=== PATIENT | male | born 1970 | race Caucasian/White ===

== ENCOUNTER → 2016-05-19 | Outpatient (CLI) | payer BC ==
[~2016-05-19] MED LIST: ACETAMINOPHEN 325 MG TAB PO ONE; BACLOFEN 10 MG TAB PO PRN; NS IV ONE; NS IV SCH; RITUXIMAB IV ONE; RITUXIMAB IV SCH; methylPREDNISolone SOD SUCC 125 MG/2 ML VIAL IVP ONE; traMADol 50 MG TAB PO PRN
[2016-05-19 13:59] VITALS: PULSE 79
[2016-05-19 14:57] VITALS: BP 112/59; RESP 16; TEMP 98.3; O2SAT 97
== END ==
LOC: F1NOP 09:34
PROVIDERS: ATTEND Psychiatry & Neurology Neurology
PROC: 3E033GC Introduction of Other Therapeutic Substance into Peripheral Vein, Percutaneous Approach (ICD-10-PCS; principal; 2016-05-19)
DX: G35 Multiple sclerosis (principal)
CPT/HCPCS: J9310

== ENCOUNTER 2016-08-17 09:32 | Outpatient (CLI) | payer BC ==
[2016-08-17] MEDS ORDERED: ACETAMINOPHEN 325 MG TAB PO SCH (10:30)
[2016-08-17] MEDS ORDERED: NS 1,000 ML IV PRN (10:30)
[2016-08-17] MEDS ORDERED: NS 500 ML IV PRN (10:30)
[2016-08-17] MEDS ORDERED: HYDROCORTISONE 100 MG/2 ML VIAL IVP PRN (10:30)
[2016-08-17] MEDS ORDERED: MEPERIDINE 25 MG/ML SYR IVP PRN (10:30)
[2016-08-17] MEDS ORDERED: DEXAMETHASONE 10 MG/ML VIAL IVP PRN (10:30)
[2016-08-17] MEDS ORDERED: ACETAMINOPHEN 325 MG TAB PO PRN (10:30)
[2016-08-17] MEDS ORDERED: riTUXimab 500 MG in NS 450 ML IV ONE (11:00)
[2016-08-17] MEDS ORDERED: methylPREDNISolone SOD SUCC 125 MG/2 ML VIAL IVP ONE (11:15)
[2016-08-17 11:26] VITALS: RESP 20
[2016-08-17 12:19] VITALS: O2SAT 97
[2016-08-17 14:17] VITALS: BP 106/66; PULSE 83; TEMP 97.9
== END 2016-08-17 15:33 | disposition home or self-care (01) ==
LOC: F1NOP 09:32
PROVIDERS: ATTEND Psychiatry & Neurology Neurology
PROC: 3E033GC Introduction of Other Therapeutic Substance into Peripheral Vein, Percutaneous Approach (ICD-10-PCS; principal; 2016-08-17)
DX: G35 Multiple sclerosis (principal)
CPT/HCPCS: J9310

== ENCOUNTER 2016-11-08 09:25 | Outpatient (CLI) | payer OTHER, BC ==
[2016-11-08] MEDS ORDERED: DEXAMETHASONE 10 MG/ML VIAL IVP PRN (09:43)
[2016-11-08] MEDS ORDERED: HYDROCORTISONE 100 MG/2 ML VIAL IVP PRN (09:43)
[2016-11-08] MEDS ORDERED: NS 500 ML IV PRN (09:43)
[2016-11-08] MEDS ORDERED: MEPERIDINE 25 MG/ML SYR IVP PRN (09:43)
[2016-11-08] MEDS ORDERED: NS 1,000 ML IV PRN (09:43)
[2016-11-08] MEDS ORDERED: ACETAMINOPHEN 325 MG TAB PO PRN (09:43)
[2016-11-08] MEDS ORDERED: methylPREDNISolone SOD SUCC 125 MG/2 ML VIAL IVP ONE (09:45)
[2016-11-08] MEDS ORDERED: ACETAMINOPHEN 325 MG TAB PO ONE (09:45)
[2016-11-08] MEDS ORDERED: riTUXimab 500 MG in NS 450 ML IV ONE (10:15)
[2016-11-08] MEDS ORDERED: FAMOTIDINE 20 MG/NACL 50 ML IV ONE (10:15)
[2016-11-08 12:13] VITALS: BP 108/76; PULSE 72; RESP 16; TEMP 98.1; O2SAT 94
== END 2016-11-08 15:00 | disposition home or self-care (01) ==
LOC: F1NOP 09:25 → EDSTATUS 10:00 → F1NOP 15:00
PROVIDERS: ATTEND Psychiatry & Neurology Neurology
PROC: 3E033GC Introduction of Other Therapeutic Substance into Peripheral Vein, Percutaneous Approach (ICD-10-PCS; principal; 2016-11-08)
DX: G35 Multiple sclerosis (principal)
CPT/HCPCS: 96374; 96375; 96413; 96415; J9310

== ENCOUNTER 2017-02-02 10:15 | Outpatient (CLI) | payer OTHER, BC ==
[2017-02-02] MEDS ORDERED: HYDROCORTISONE 100 MG/2 ML VIAL IVP PRN (10:28)
[2017-02-02] MEDS ORDERED: MEPERIDINE 25 MG/ML SYR IVP PRN (10:28)
[2017-02-02] MEDS ORDERED: ACETAMINOPHEN 325 MG TAB PO PRN (10:28)
[2017-02-02] MEDS ORDERED: NS 1,000 ML IV PRN (10:28)
[2017-02-02] MEDS ORDERED: NS 500 ML IV PRN (10:28)
[2017-02-02] MEDS ORDERED: DEXAMETHASONE 10 MG/ML VIAL IVP PRN (10:28)
[2017-02-02] MEDS ORDERED: methylPREDNISolone SOD SUCC 125 MG/2 ML VIAL IVP ONE (10:45)
[2017-02-02] MEDS ORDERED: ACETAMINOPHEN 325 MG TAB PO ONE (10:45)
[2017-02-02 11:05] VITALS: BP 132/80; PULSE 67; RESP 16; TEMP 97.6; O2SAT 96
[2017-02-02] MEDS ORDERED: riTUXimab 500 MG in NS 450 ML IV ONE (11:15)
== END 2017-02-02 16:00 | disposition home or self-care (01) ==
LOC: F1NOP 10:15
PROVIDERS: ATTEND Psychiatry & Neurology Neurology
PROC: 3E033GC Introduction of Other Therapeutic Substance into Peripheral Vein, Percutaneous Approach (ICD-10-PCS; principal; 2017-02-02)
DX: G35 Multiple sclerosis (principal)
CPT/HCPCS: 96374; 96413; 96415; J2930; J9310

== ENCOUNTER 2017-05-04 09:12 | Outpatient (CLI) | payer OTHER, BC ==
[2017-05-04] MEDS ORDERED: HYDROCORTISONE 100 MG/2 ML VIAL IVP PRN (09:29)
[2017-05-04] MEDS ORDERED: NS 500 ML IV PRN (09:29)
[2017-05-04] MEDS ORDERED: DEXAMETHASONE 10 MG/ML VIAL IVP PRN (09:29)
[2017-05-04] MEDS ORDERED: MEPERIDINE 25 MG/ML SYR IVP PRN (09:29)
[2017-05-04] MEDS ORDERED: NS 1,000 ML IV PRN (09:29)
[2017-05-04] MEDS ORDERED: ACETAMINOPHEN 325 MG TAB PO PRN (09:29)
[2017-05-04] MEDS ORDERED: ACETAMINOPHEN 325 MG TAB PO ONE (09:29)
[2017-05-04] MEDS ORDERED: riTUXimab 500 MG in NS 450 ML IV ONE (10:00)
[2017-05-04] MEDS ORDERED: methylPREDNISolone SOD SUCC 125 MG/2 ML VIAL IVP ONE (10:45)
[2017-05-04 11:09] VITALS: RESP 16
[2017-05-04 13:00] VITALS: BP 100/65; PULSE 71; TEMP 97.9; O2SAT 97
== END 2017-05-04 16:20 | disposition home or self-care (01) ==
LOC: F1NOP 09:12
PROVIDERS: ATTEND Psychiatry & Neurology Neurology
PROC: 3E033GC Introduction of Other Therapeutic Substance into Peripheral Vein, Percutaneous Approach (ICD-10-PCS; principal; 2017-05-04)
DX: G35 Multiple sclerosis (principal)
CPT/HCPCS: J2930; J9310

== ENCOUNTER 2017-07-25 09:37 | Outpatient (CLI) | payer OTHER, BC ==
[2017-07-25] MEDS ORDERED: ACETAMINOPHEN 325 MG TAB PO PRN (10:01)
[2017-07-25] MEDS ORDERED: MEPERIDINE 25 MG/ML SYR IVP PRN (10:01)
[2017-07-25] MEDS ORDERED: NS 1,000 ML IV PRN (10:01)
[2017-07-25] MEDS ORDERED: HYDROCORTISONE 100 MG/2 ML VIAL IVP PRN (10:01)
[2017-07-25] MEDS ORDERED: DEXAMETHASONE 10 MG/ML VIAL IVP PRN (10:01)
[2017-07-25] MEDS ORDERED: NS 500 ML IV PRN (10:01)
[2017-07-25] MEDS ORDERED: EPINEPHrine 1 MG/ML INJ IM PRN (10:01)
[2017-07-25] MEDS ORDERED: ACETAMINOPHEN 325 MG TAB PO ONE (10:30)
[2017-07-25] MEDS ORDERED: riTUXimab 500 MG in NS 450 ML IV ONE (11:00)
[2017-07-25] MEDS ORDERED: methylPREDNISolone SOD SUCC 125 MG/2 ML VIAL IVP ONE (11:00)
[2017-07-25 13:17] VITALS: BP 112/79
== END 2017-07-25 16:45 | disposition home or self-care (01) ==
LOC: F1NOP 09:37
PROVIDERS: ATTEND Psychiatry & Neurology Neurology
PROC: 3E033GC Introduction of Other Therapeutic Substance into Peripheral Vein, Percutaneous Approach (ICD-10-PCS; principal; 2017-07-25)
DX: G35 Multiple sclerosis (principal)
CPT/HCPCS: 96374; 96413; 96415; J2930; J9310

== ENCOUNTER → 2018-02-13 | Outpatient (CLI) | payer OTHER, BC ==
[~2018-02-13] MED LIST changes: +ACETAMINOPHEN 325 MG TAB PO PRN; -BACLOFEN 10 MG TAB PO PRN; +DEXAMETHASONE 10 MG/ML VIAL IVP PRN; +EPINEPHrine 1 MG/ML INJ IM PRN; +HYDROCORTISONE 100 MG/2 ML VIAL IVP PRN; +MEPERIDINE 25 MG/ML SYR IVP PRN; +NS 1,000 ML IV PRN; +NS 500 ML IV PRN; -NS IV ONE; -NS IV SCH; -RITUXIMAB IV ONE; -RITUXIMAB IV SCH; +riTUXimab 500 MG in NS 450 ML IV ONE; -traMADol 50 MG TAB PO PRN
[2018-02-13 10:41] VITALS: BP 120/75
== END ==
LOC: F1NOP 09:44
PROVIDERS: ATTEND Psychiatry & Neurology Neurology
PROC: 3E033GC Introduction of Other Therapeutic Substance into Peripheral Vein, Percutaneous Approach (ICD-10-PCS; principal; 2018-02-13)
DX: G35 Multiple sclerosis (principal)
CPT/HCPCS: 96374; 96413; 96415; J2930; J9310; J2175

== ENCOUNTER 2018-05-07 09:40 | Outpatient (CLI) | payer OTHER, BC ==
[2018-05-07] MEDS ORDERED: NS 1,000 ML IV PRN (10:02)
[2018-05-07] MEDS ORDERED: NS 500 ML IV PRN (10:02)
[2018-05-07] MEDS ORDERED: MEPERIDINE 25 MG/ML SYR IVP PRN (10:02)
[2018-05-07] MEDS ORDERED: ACETAMINOPHEN 325 MG TAB PO PRN (10:02)
[2018-05-07] MEDS ORDERED: riTUXimab 1,000 MG in NS 900 ML IV ONE (11:00)
[2018-05-07] MEDS ORDERED: riTUXimab 500 MG in NS 450 ML IV ONE (12:30)
[2018-05-07] MEDS ORDERED: ACETAMINOPHEN 325 MG TAB PO ONE (12:30)
[2018-05-07] MEDS ORDERED: methylPREDNISolone SOD SUCC 125 MG/2 ML VIAL IVP ONE (12:30)
[2018-05-07 15:38] VITALS: BP 117/69
== END 2018-05-07 16:01 | disposition home or self-care (01) ==
LOC: F1NOP 09:40
PROVIDERS: ATTEND Internal Medicine
PROC: 3E033GC Introduction of Other Therapeutic Substance into Peripheral Vein, Percutaneous Approach (ICD-10-PCS; principal; 2018-05-07)
DX: G35 Multiple sclerosis (principal)
CPT/HCPCS: 96374; 96413; 96415; J2930; J9312; J2175

== ENCOUNTER → 2018-08-07 | Outpatient (CLI) | payer OTHER, BC | LOC: F1NOP 09:40 ==